=== PATIENT | male | born 1990 | race Caucasian/White ===

== ENCOUNTER → 2020-08-21 | Outpatient (CLI) | payer OTHER ==
[~2020-08-21] MED LIST: AUGMENTIN 875 M1 TAB PO; BENADRYL25 MG PO; BENADRYL50 MG PO; CLARITIN10 MG PO; MOTRIN800 MG PO; NKHM; ONDANSETRON4 M1 PO; ROBITUSSIN DM120 ML PO; SEPTDS PO
== END | disposition home or self-care (01) ==
LOC: COVID19 15:20
PROVIDERS: ATTEND Family Medicine
DX: Z20.822 Contact with and (suspected) exposure to COVID-19 (principal)

== ENCOUNTER 2020-09-09 22:42 | Emergency (ER) | payer OTHER ==
[~2020-09-09] VITALS: Ht 177.8 cm; Wt 108.9 kg
[~2020-09-09 22:42] MED LIST changes: -SEPTDS PO
[2020-09-09] MEDS ORDERED: SEPTDS PO (23:18)
== END 2020-09-09 23:35 | disposition home or self-care (01) ==
LOC: ED 22:42
DX: M79.641 Pain in right hand (principal); Z88.8 Allergy status to other drugs, medicaments and biological substances

== ENCOUNTER → 2020-12-05 | Outpatient (CLI) | payer OTHER ==
[~2020-12-05] MED LIST changes: +SEPTDS PO
== END | disposition home or self-care (01) ==
LOC: RAD 12:30
PROVIDERS: ATTEND Chiropractor Orthopedic
DX: M99.03 Segmental and somatic dysfunction of lumbar region (principal)

== ENCOUNTER 2025-03-14 17:05 | Emergency (ER) | payer OTHER ==
[~2025-03-14] VITALS: Ht 177.8 cm; Wt 108.9 kg
[2025-03-14] MEDS ORDERED: Acetaminophen/Hydrocodone 5 MG/325 MG TABLET PO ONE (18:30)
[2025-03-14] MEDS ORDERED: METHOCARBAMOL 750 MG TAB PO ONE (18:30)
[2025-03-14] MEDS ORDERED: METHOCARBAMOL500 M1 PO (19:51)
[2025-03-14] MEDS ORDERED: Motrin,Rufen800 MG PO (19:51)
== END 2025-03-14 19:59 | disposition home or self-care (01) ==
LOC: ED 17:05
DX: S93.401A Sprain of unspecified ligament of right ankle, initial encounter (principal); Z79.899 Other long term (current) drug therapy; Z88.1 Allergy status to other antibiotic agents; V29.208A Unspecified rider of other motorcycle injured in collision with unspecified motor vehicles in nontraffic accident, initial encounter; Y93.89 Activity, other specified; Y92.89 Other specified places as the place of occurrence of the external cause; Y99.8 Other external cause status